=== PATIENT | female | born 1985 | race Caucasian/White ===

== ENCOUNTER 2019-10-08 15:14 | Emergency (ER) | payer OTHER ==
[~2019-10-08] VITALS: Ht 177.8 cm; Wt 78.0 kg
[2019-10-08] MEDS ORDERED: ACETAMINOPHEN 500 MG TABLET ONE (15:35)
[2019-10-08] MEDS ORDERED: ACETAMINOPHEN 325 MG TABLET PO ONE (16:00)
--- NOTE | 2019-10-08 16:04 | NUR ---
PT CAME IN CO SOB, COUGH, AND FEVERS X 10 DAYS. PT WAS SEEN AT LAST WEEK AND WAS SWABBED FOR STREP AND FLU - BOTH NEGATIVE. PT WAS SENT HOME FROM WITH INHALER. PT SAYS SHE "HAS NOT GOTTEN ANY BETTER. AND I SPIKED A FEVER LAST NIGHT OF 101. I DID A MED TELE CONSULT AND WAS TOLD I SHOULD COME TO THE ED" EKG COMPELTED. PT 99% ON RM AIR.
[2019-10-08 16:08] VITALS: BP 131/77
--- NOTE | 2019-10-08 17:00 | NUR ---
ONEIL TRIAGED PT & DID EKG
== END 2019-10-08 16:19 | disposition home or self-care (01) ==
LOC: ED 16:09
DX: Z20.828 Contact with and (suspected) exposure to other viral communicable diseases (principal); J20.9 Acute bronchitis, unspecified; R00.0 Tachycardia, unspecified; R94.31 Abnormal electrocardiogram [ECG] [EKG]
CPT/HCPCS: 71045; 93005; 99283; 99284; 99285